=== PATIENT | female | born 1955 ===

== ENCOUNTER 2021-10-23 07:26 | Inpatient (IN) | payer OTHER ==
[~2021-10-23] VITALS: Ht 154.9 cm; Wt 47.5 kg
[2021-10-23] MEDS ORDERED: DexAMETHasone SOD PHOS 10MG/1ML VIAL INJ IV ONE (08:00)
[2021-10-23] MEDS ORDERED: cefTRIAXone 1GM/50ML D5W 50 ML IV ONE (08:15)
[2021-10-23] MEDS ORDERED: AZITHROMYCIN 500MG/ 250ML 250 ML IV ONE (08:15)
[2021-10-23] MEDS ORDERED: hydrALAZINE HCL 20 MG/ML VL IV ONE (08:15)
[2021-10-23 08:34] LABS: Basophils # (auto) 0 10 ^3/uL (0-0.2); Basophils % (auto) 0.2 % (0.0-2.0); Eosinophils # (auto) 0 10 ^3/uL (0-0.8); Eosinophils % (auto) 0.3 % (0.0-7.0); Hematocrit 33.7 % (36.0-46.0); Lymphocytes # (auto) 1.5 10 ^3/uL (0.4-5.4); Lymphocytes % (auto) 10.8 % (10.0-50.0); Mean Corpuscular Hemoglobin 29.4 pg (28.0-32.0); Mean Corpuscular Hgb Conc. 32.5 g/dL (32.0-36.0); Mean Corpuscular Volume 90.5 fL (80.0-100.0); Monocytes # (auto) 0.9 10 ^3/uL (0-1.3); Monocytes % (auto) 6.6 % (0.0-12.0); Neutrophils # (auto) 11.1 10 ^3/uL (1.6-8.6); Neutrophils % (auto) 82.1 % (37.0-80.0); Nucleated Red Blood Cells % 0.1 %; Red Blood Cells 3.72 10^6/uL (4.0-5.20); White Blood Cell 13.5 10^3/uL (4.4-10.8)
[2021-10-23 08:53] LABS: Albumin 2.1 g/dL (3.4-5.0); Calcium 7.3 mg/dL (8.5-10.1); Magnesium 2.2 mg/dL (1.6-2.6); Potassium 3.9 mmol/L (3.5-5.1)
[2021-10-23 09:02] LABS: BUN/Creatinine Ratio 22.4; Bilirubin, Total 0.4 mg/dL (0.2-1.0); CRP High Sensitivity 14.4 mg/dL (< 0.3); Total Protein 7.5 g/dL (6.4-8.2)
[2021-10-23 09:18] LABS: INR 1.45 (0.9-1.15); Partial Thromboplastin Time 35.3 sec (23.6-33.0)
[2021-10-23] MEDS ORDERED: IOHEXOL 350 MG/ML 100ML IJ ONE (09:39)
[2021-10-23] MEDS ORDERED: FUROSEMIDE 40 MG/4 ML VIAL IV ONE (10:00)
[2021-10-23 10:24] LABS: Urine Bacteria FEW /hpf (None Seen); Urine Blood Negative /uL (Negative); Urine Hyaline Cast FEW /lpf (0 - 2); Urine Specific Gravity 1.007 (1.001-1.035); Urine WBC 11 /hpf (0 - 5)
[2021-10-23] MEDS ORDERED: ACETAMINOPHEN 325 MG TAB PO PRN (12:00)
[2021-10-23] MEDS ORDERED: NITROGLYCERIN 0.4 MG SL TAB SL PRN (12:00)
[2021-10-23] MEDS ORDERED: BACL20TA PO (16:34)
[2021-10-23] MEDS ORDERED: HYDR-4833 PO (16:34)
[2021-10-23] MEDS ORDERED: LISIPOW XX (16:34)
[2021-10-23 17:17] VITALS: BP 146/81
[2021-10-23] MEDS ORDERED: IPRATROPIUM BROM 0.5 MG/2.5ML INH SOL NEB SCH (18:00)
[2021-10-23] MEDS ORDERED: ALBUTEROL SULF 2.5 MG/0.5ML(0.5%) NEB SOLN NEB SCH (18:00)
[2021-10-23] MEDS: IPRATROPIUM BROM 0.5 MG/2.5ML INH SOL NEB SCH (18:41)
[2021-10-23] MEDS: ALBUTEROL SULF 2.5 MG/0.5ML(0.5%) NEB SOLN NEB SCH (18:41)
[2021-10-23 22:29] VITALS: BP 148/81
[2021-10-23] MEDS: BACLOFEN 10 MG TAB PO PRN (23:13)
[2021-10-23] MEDS: HYDROcodone-ACET 5/325MG TAB PO PRN (23:14)
[2021-10-24 05:34] VITALS: BP 154/86
[2021-10-24 08:00] VITALS: BP 146/89
[2021-10-24 08:30] VITALS: BP 146/89
[2021-10-24] MEDS: IPRATROPIUM BROM 0.5 MG/2.5ML INH SOL NEB SCH ×3 (09:23→18:59)
[2021-10-24] MEDS: ALBUTEROL SULF 2.5 MG/0.5ML(0.5%) NEB SOLN NEB SCH ×3 (09:23→18:59)
[2021-10-24] MEDS: FUROSEMIDE 40 MG/4 ML VIAL IV SCH (09:40)
[2021-10-24] MEDS: CARVEDILOL 3.125 MG TAB PO SCH ×2 (09:41→21:12)
[2021-10-24] MEDS: SACUBITRIL-VALSARTAN 24mg/26mg TAB PO SCH ×2 (09:42→21:13)
[2021-10-24] MEDS: BACLOFEN 10 MG TAB PO PRN ×2 (09:43→17:56)
[2021-10-24] MEDS: HYDROcodone-ACET 5/325MG TAB PO PRN ×2 (09:43→17:56)
[2021-10-24 12:30] VITALS: BP 148/84
[2021-10-24] MEDS ORDERED: CAR3125T PO (16:56)
[2021-10-24] MEDS ORDERED: FURO1TAB31 PO (16:56)
[2021-10-24] MEDS ORDERED: SACU1TAB PO (16:56)
[2021-10-24 17:00] VITALS: BP 137/80
[2021-10-24 21:17] VITALS: BP 153/83
[2021-10-25] MEDS: HYDROcodone-ACET 5/325MG TAB PO PRN ×4 (00:06→22:50)
[2021-10-25 05:30] VITALS: BP 154/87
[2021-10-25] MEDS: ALBUTEROL SULF 2.5 MG/0.5ML(0.5%) NEB SOLN NEB SCH ×3 (06:41→19:03)
[2021-10-25] MEDS: IPRATROPIUM BROM 0.5 MG/2.5ML INH SOL NEB SCH ×3 (06:41→19:03)
[2021-10-25 08:00] VITALS: BP 127/82
[2021-10-25] MEDS: FUROSEMIDE 40 MG/4 ML VIAL IV SCH (08:40)
[2021-10-25] MEDS: CARVEDILOL 3.125 MG TAB PO SCH ×2 (08:40→21:00)
[2021-10-25] MEDS: BACLOFEN 10 MG TAB PO PRN ×2 (08:41→16:43)
[2021-10-25] MEDS: SACUBITRIL-VALSARTAN 24mg/26mg TAB PO SCH ×2 (08:41→21:00)
[2021-10-25 21:37] VITALS: BP 155/85
[2021-10-26] VITALS (7 sets, daily range): BP systolic 135–159; BP diastolic 82–97
[2021-10-26] MEDS: IPRATROPIUM BROM 0.5 MG/2.5ML INH SOL NEB SCH ×4 (01:03→19:13)
[2021-10-26] MEDS: ALBUTEROL SULF 2.5 MG/0.5ML(0.5%) NEB SOLN NEB SCH ×4 (01:03→19:13)
[2021-10-26] MEDS: HYDROcodone-ACET 5/325MG TAB PO PRN (04:40)
[2021-10-26] MEDS: BACLOFEN 10 MG TAB PO PRN (04:40)
[2021-10-26] MEDS: SACUBITRIL-VALSARTAN 24mg/26mg TAB PO SCH (10:00)
[2021-10-26] MEDS: CARVEDILOL 3.125 MG TAB PO SCH (10:00)
[2021-10-26] MEDS: FUROSEMIDE 40 MG/4 ML VIAL IV SCH (10:00)
== END 2021-10-26 19:12 | disposition home health service (06) | DRG 291 ==
LOC: EDBD 07:26 → ER 07:26 → TELE 11:57 → TELE-CENTR 14:59
PROVIDERS: ADMIT Internal Medicine; ATTEND Internal Medicine
PROC: 0W993ZZ Drainage of Right Pleural Cavity, Percutaneous Approach (ICD-10-PCS; principal; 2021-10-26)
DX: I11.0 Hypertensive heart disease with heart failure (principal); E43 Unspecified severe protein-calorie malnutrition; J18.9 Pneumonia, unspecified organism; J96.21 Acute and chronic respiratory failure with hypoxia; I50.23 Acute on chronic systolic (congestive) heart failure; J44.0 Chronic obstructive pulmonary disease with (acute) lower respiratory infection; J91.8 Pleural effusion in other conditions classified elsewhere; Z68.1 Body mass index [BMI] 19.9 or less, adult; J44.1 Chronic obstructive pulmonary disease with (acute) exacerbation; I16.0 Hypertensive urgency; R54 Age-related physical debility; Z20.822 Contact with and (suspected) exposure to COVID-19; I44.7 Left bundle-branch block, unspecified; Z99.81 Dependence on supplemental oxygen; Z88.5 Allergy status to narcotic agent; Z79.899 Other long term (current) drug therapy; R77.8 Other specified abnormalities of plasma proteins
CPT/HCPCS: 32555; 36415; 70450; 71045; 71275; 76604; 80053; 81001; 82728; 83605; 83615; 83735; 83880; 84484; 85025; 85379; 85610; 85730; 86141; 87040; 87086; 87205; 89051; 93005; 93306; 93970; 94640; 96365; 96366; 96367; 96375; 99291; G0378; J0696; J1100